=== PATIENT | male | born 1935 | race Caucasian/White ===

== ENCOUNTER → 2016-10-05 | Outpatient (CLI) | payer MEDICARE, OTHER ==
[2016-10-05 08:27] LABS: HEMOGLOBIN 11.3 gm/dl (14.0-17.5); RED BLOOD COUNT 3.49 M/UL (4.20-5.50); WHITE BLOOD COUNT 2.8 K/UL (4.5-11.0)
[2016-10-05 08:46] LABS: BUN/CREATININE RATIO 28 (0-10)
== END ==
LOC: LAB 07:29
PROVIDERS: Emergency Medicine
DX: Z00.01 Encounter for general adult medical examination with abnormal findings (principal); I25.10 Atherosclerotic heart disease of native coronary artery without angina pectoris; E78.2 Mixed hyperlipidemia; G56.00 Carpal tunnel syndrome, unspecified upper limb; G56.03 Carpal tunnel syndrome, bilateral upper limbs; Z12.11 Encounter for screening for malignant neoplasm of colon; Z81.2 Family history of tobacco abuse and dependence; Z12.5 Encounter for screening for malignant neoplasm of prostate; R73.09 Other abnormal glucose; M51.36 Other intervertebral disc degeneration, lumbar region; I65.21 Occlusion and stenosis of right carotid artery; M13.851 Other specified arthritis, right hip
CPT/HCPCS: 36415; 80053; 80061; 80162; 83704; 85027

== ENCOUNTER → 2016-12-29 | Outpatient (CLI) | payer MEDICARE, OTHER ==
[2016-12-29 08:10] LABS: HEMOGLOBIN 11.8 gm/dl (14.0-17.5); RED BLOOD COUNT 3.59 M/UL (4.20-5.50); WHITE BLOOD COUNT 2.7 K/UL (4.5-11.0)
[2016-12-29 08:29] LABS: BUN/CREATININE RATIO 21 (0-10)
== END ==
LOC: LAB 07:19
PROVIDERS: Emergency Medicine
DX: M54.5 Low back pain (principal); I10 Essential (primary) hypertension; I48.2 Chronic atrial fibrillation; G56.03 Carpal tunnel syndrome, bilateral upper limbs; M51.36 Other intervertebral disc degeneration, lumbar region; M41.9 Scoliosis, unspecified
CPT/HCPCS: 36415; 72110; 80048; 85027

== ENCOUNTER → 2020-05-27 | Outpatient (CLI) | payer MEDICARE, OTHER ==
[~2020-05-27] MED LIST: ADULT LOW DOSE81 MG PO; AVODART0.5 MG PO; CARAFATE 1 GM TA1 GM PO; CARDIZEM60 MG PO; CEFDINIR300 MG PO; CLOPIDOGREL75 MG PO; COUMADIN2.5 MG PO; COUMADIN5 MG PO; DIGOXIN125 MCG PO; DILTIAZEM 24HR240 M1 PO; ECOTRIN81 MG PO; ELIQUIS 2.5 MG2.5 MG PO; ELIQUIS 5 MG TAB5 MG PO; FEOSOL325 MG PO; FLAGYL500 MG PO; FLOMAX 0.4 MG0.4 MG PO; FUROSEMIDE40 MG PO; ICAPS TABLET1 EACH PO; LANOXIN125 MCG PO; LASIX20 MG PO; LEVAQUIN500 MG PO; LEVOFLOXACIN500 MG PO; LIORESAL TAB 1010 MG PO; LOPRESSOR 50 MG50 MG PO; MIRALAX17 GM PO; NEURONTIN 100100 MG PO; NORCO 5-325 TA1 EACH PO; NORVASC10 MG PO; PRAVACHOL20 MG PO; PROSCAR5 MG PO; PROTONIX 40 MG40 M1 PO; PROTONIX40 MG PO; STIMULANT LAXA1 EACH PO; TYLENOL W/CODEIN1 E1 PO; ULTRAM50 MG PO; VITAMIN B-121000 MC3 PO; VITAMIN B12-FO1 EACH PO
== END ==
LOC: ECHO 10:34
DX: I35.0 Nonrheumatic aortic (valve) stenosis (principal); I51.7 Cardiomegaly; I34.8 Other nonrheumatic mitral valve disorders; I34.0 Nonrheumatic mitral (valve) insufficiency; I10 Essential (primary) hypertension
CPT/HCPCS: ECHO; 93306

== ENCOUNTER → 2020-09-02 | Outpatient (CLI) | payer MEDICARE, OTHER ==
[2020-09-02 10:21] LABS: BUN/CREATININE RATIO 24 (0-10)
== END ==
LOC: LAB 08:12
PROVIDERS: Emergency Medicine
DX: I10 Essential (primary) hypertension (principal); E78.2 Mixed hyperlipidemia; D50.8 Other iron deficiency anemias; R53.83 Other fatigue
CPT/HCPCS: 36415; 80053; 84443; 84550

== ENCOUNTER 2020-09-15 22:33 | Inpatient (IN) | payer MEDICARE, OTHER ==
[~2020-09-15] VITALS: Ht 177.8 cm; Wt 69.1 kg
[~2020-09-15 22:33] MED LIST changes: -CARAFATE 1 GM TA1 GM PO; -CLOPIDOGREL75 MG PO; -DIGOXIN125 MCG PO; -ELIQUIS 2.5 MG2.5 MG PO; -FUROSEMIDE40 MG PO; -LIORESAL TAB 1010 MG PO; -PROTONIX 40 MG40 M1 PO; -STIMULANT LAXA1 EACH PO
[2020-09-15 23:20] LABS: HEMOGLOBIN 7.9 gm/dl (14.0-17.5); RED BLOOD COUNT 2.22 M/UL (4.20-5.50); WHITE BLOOD COUNT 5.6 K/UL (4.5-11.0)
[2020-09-16] MEDS ORDERED: ELIQUIS 2.5 MG2.5 MG PO (04:07)
[2020-09-16 13:32] LABS: HEMOGLOBIN 10.2 gm/dl (14.0-17.5); RED BLOOD COUNT 3.11 M/UL (4.20-5.50); WHITE BLOOD COUNT 5.3 K/UL (4.5-11.0)
[2020-09-17 05:39] LABS: HEMOGLOBIN 10.4 gm/dl (14.0-17.5); RED BLOOD COUNT 3.14 M/UL (4.20-5.50)
[2020-09-17 05:49] LABS: WHITE BLOOD COUNT 7.7 K/UL (4.5-11.0)
--- NOTE | 2020-09-17 12:28 | NUR ---
REPORT CALLED TO RUKHSANA BAHENA. PATIENT GOING TO PCU RM [id number] FROM PACU. NOTIFIED REECE FROM PACU TO CALL REPORT TO SHRUTI. PT BELONGINGS TAKEN TO PT IN ROM 6106 BY RUKHSANA REMY.
[2020-09-18 04:48] LABS: RED BLOOD COUNT 3.06 M/UL (4.20-5.50); WHITE BLOOD COUNT 6.7 K/UL (4.5-11.0)
[2020-09-18 05:50] LABS: BUN/CREATININE RATIO 24 (0-10)
[2020-09-18] MEDS ORDERED: PROTONIX 40 MG40 M1 PO (11:53)
== END 2020-09-18 13:50 | disposition home or self-care (01) | DRG 377 ==
LOC: ER1 22:33 → CDU 09-16 00:43 → CCU 09-16 00:43 → PROG CARE 09-16 00:43 → CCU 09-16 04:05 → PROG CARE 09-17 12:07
PROVIDERS: Internal Medicine; Internal Medicine Gastroenterology; Physician Assistant; ADMIT Internal Medicine
PROC: 0DB78ZX Excision of Stomach, Pylorus, Via Natural or Artificial Opening Endoscopic, Diagnostic (ICD-10-PCS; principal; 2020-09-17 16:00)
DX: K29.71 Gastritis, unspecified, with bleeding (principal); I21.A1 Myocardial infarction type 2; E87.3 Alkalosis; D62 Acute posthemorrhagic anemia; I48.20 Chronic atrial fibrillation, unspecified; N17.9 Acute kidney failure, unspecified; K25.9 Gastric ulcer, unspecified as acute or chronic, without hemorrhage or perforation; E78.5 Hyperlipidemia, unspecified; I49.5 Sick sinus syndrome; I25.10 Atherosclerotic heart disease of native coronary artery without angina pectoris; I10 Essential (primary) hypertension; N40.0 Benign prostatic hyperplasia without lower urinary tract symptoms; R73.03 Prediabetes; D69.6 Thrombocytopenia, unspecified; D46.9 Myelodysplastic syndrome, unspecified; Z96.641 Presence of right artificial hip joint; R53.1 Weakness; D50.9 Iron deficiency anemia, unspecified; I35.0 Nonrheumatic aortic (valve) stenosis; I07.1 Rheumatic tricuspid insufficiency; R33.9 Retention of urine, unspecified; Z79.01 Long term (current) use of anticoagulants; Z95.0 Presence of cardiac pacemaker; Z86.73 Personal history of transient ischemic attack (TIA), and cerebral infarction without residual deficits; Z95.1 Presence of aortocoronary bypass graft; Z82.49 Family history of ischemic heart disease and other diseases of the circulatory system
CPT/HCPCS: 0240U; 36415; 36430; 36600; 71045; 80048; 80053; 82272; 82550; 82553; 82803; 83874; 83880; 84484; 85025; 85610; 85730; 86850; 86900; 86901; 86920; 88342; 93005; 96374; 99285; C9113; J1940; J7030; J7040; J7050; P9016

== ENCOUNTER 2020-09-22 14:14 | Inpatient (IN) | payer MEDICARE, OTHER ==
[~2020-09-22] VITALS: Ht 180.3 cm; Wt 70.1 kg
[~2020-09-22 14:14] MED LIST changes: +ELIQUIS 2.5 MG2.5 MG PO; +PROTONIX 40 MG40 M1 PO
[2020-09-22 15:43] LABS: HEMOGLOBIN 8.5 gm/dl (14.0-17.5); RED BLOOD COUNT 2.6 M/UL (4.20-5.50); WHITE BLOOD COUNT 3.7 K/UL (4.5-11.0)
[2020-09-23] MEDS ORDERED: LIORESAL TAB 1010 MG PO (03:04)
[2020-09-23 03:20] LABS: HEMOGLOBIN 8.1 gm/dl (14.0-17.5); RED BLOOD COUNT 2.49 M/UL (4.20-5.50); WHITE BLOOD COUNT 4.5 K/UL (4.5-11.0)
--- NOTE | 2020-09-23 04:38 | NUR ---
PATIENT ARRIVED ON FLOOR AT 2211 AT 2215 LAB REPORTED CRITICAL TROPONIN I OF 0.81 LAST TROPONIN 0.90. AT 0407 LAB CALLED CRITICAL TROPONIN I OF 0.67. TROPONIN CONTINUES TO TREND DOWN.
--- NOTE | 2020-09-23 08:20 | NUR ---
RN NOTIFIED DR. ALVAREZ OF ELEVATED TROPONIN LEVEL AND INFORMED HIM THAT CARDIOLOGY CONSULT WAS ORDERED. NO NEW ORDERS NOTED.
[2020-09-23 18:12] LABS: HEMOGLOBIN 7.7 gm/dl (14.0-17.5)
[2020-09-23 22:09] LABS: ACINETOBACTER BAUMANNII Not Detected (Negative); CANDIDA ALBICANS Not Detected (Negative); CANDIDA KRUSEI Not Detected (Negative); CANDIDA TROPICALIS Not Detected (Negative); ENTEROCOCCUS Not Detected (Negative); ESCHERICHIA COLI Not Detected (Negative); HAEMOPHILUS INFLUENZAE Not Detected (Negative); KLEBSIELLA OXYTOCA Not Detected (Negative); KLEBSIELLA PNEUMONIAE Not Detected (Negative); KPC-CARBAPENEM-RESISTANCE GENE Not Detected (Negative); PROTEUS Not Detected (Negative); PSEUDOMONAS AERUGINOSA Not Detected (Negative); SERRATIA MARCESANS Not Detected (Negative); STAPHYLOCOCCUS AUREUS Not Detected (Negative); STREP AGALACTIAE (GROUP B) Not Detected (Negative); STREP PYOGENES (GROUP A) Not Detected (Negative); STREPTOCOCCUS Not Detected (Negative); vanA/B (VANCOMYCIN RESIST GENE Not Detected (Negative)
[2020-09-23 23:43] LABS: STAPHYLOCOCCUS DETECTED (Negative); mecA (METHICILLIN RESIST GENE DETECTED (Negative)
[2020-09-24 03:53] LABS: RED BLOOD COUNT 2.45 M/UL (4.20-5.50); WHITE BLOOD COUNT 3.5 K/UL (4.5-11.0)
[2020-09-24 19:07] LABS: BORDETELLA PARAPERTUSSIS Not Detected (Not Detectd); BORDETELLA PERTUSSIS Not Detected (Not Detectd); CHLAMYDIA PNEUMONIAE Not Detected (Not Detectd); CORONAVIRUS HKU1 Not Detected (Not Detectd); CORONAVIRUS NL63 Not Detected (Not Detectd); CORONAVIRUS OC43 Not Detected (Not Detectd); CORONOAVIRUS 229E Not Detected (Not Detectd); HUMAN METAPNEUMOVIRUS Not Detected (Not Detectd); HUMAN RHINOVIRUS/ENTEROVIRUS Not Detected (Not Detectd); INFLUENZA A Not Detected (Not Detectd); INFLUENZA B Not Detected (Not Detectd); MYCOPLASMA PNEUMONIAE Not Detected (Not Detectd); PARAINFLUENZA VIRUS 1 Not Detected (Not Detectd); PARAINFLUENZA VIRUS 2 Not Detected (Not Detectd); PARAINFLUENZA VIRUS 3 Not Detected (Not Detectd); PARAINFLUENZA VIRUS 4 Not Detected (Not Detectd); RESPIRATORY SYNCYTIAL VIRUS Not Detected (Not Detectd)
[2020-09-24 20:15] LABS: SARS-CoV-2 NOT DETECTED (Not Detectd)
[2020-09-25 05:23] LABS: HEMOGLOBIN 7.8 gm/dl (14.0-17.5); RED BLOOD COUNT 2.39 M/UL (4.20-5.50); WHITE BLOOD COUNT 3.6 K/UL (4.5-11.0)
[2020-09-26 04:00] LABS: RED BLOOD COUNT 2.46 M/UL (4.20-5.50); WHITE BLOOD COUNT 4.4 K/UL (4.5-11.0)
--- NOTE | 2020-09-26 12:10 | NUR ---
PATIENTS ROOM AIR 02 SAT 84%
[2020-09-27 03:40] LABS: HEMOGLOBIN 8.3 gm/dl (14.0-17.5); RED BLOOD COUNT 2.55 M/UL (4.20-5.50); WHITE BLOOD COUNT 4.8 K/UL (4.5-11.0)
--- NOTE | 2020-09-27 17:13 | NUR ---
ANTI EMBOLSM STOCKINGS APPLIED.
[2020-09-28 06:10] LABS: HEMOGLOBIN 9.9 gm/dl (14.0-17.5); WHITE BLOOD COUNT 5.4 K/UL (4.5-11.0)
[2020-09-28 06:12] LABS: RED BLOOD COUNT 3.16 M/UL (4.20-5.50)
--- NOTE | 2020-09-28 14:06 | NUR ---
PATIENT HAVING MOMENT OF CONFUSION. PATIENT ASKED ME TO "HOLD THIS PAINT CAN IN MY HAND FOR ME" PATIENT HAD NOTHING IN HAND. ANSWERED ALL QUESTIONS REGARDING ORIENTATION APPROPRIATELY. HE KNEW WHERE HE WAS, WHO HE WAS, THE YEAR AND THE PRESIDENT.
[2020-09-29 06:10] LABS: HEMOGLOBIN 9.8 gm/dl (14.0-17.5); RED BLOOD COUNT 3.13 M/UL (4.20-5.50); WHITE BLOOD COUNT 4.4 K/UL (4.5-11.0)
[2020-09-29 07:15] LABS: BUN/CREATININE RATIO 15 (0-10)
[2020-09-29] MEDS ORDERED: CLOPIDOGREL75 MG PO (11:15)
[2020-09-29] MEDS ORDERED: FUROSEMIDE40 MG PO (11:15)
[2020-09-29] MEDS ORDERED: DIGOXIN125 MCG PO (11:15)
[2020-09-29] MEDS ORDERED: STIMULANT LAXA1 EACH PO (11:15)
[2020-09-29] MEDS ORDERED: CARAFATE 1 GM TA1 GM PO (11:15)
--- NOTE | 2020-09-29 14:44 | NUR ---
ROOM AIR SAT 87%
== END 2020-09-29 17:49 | disposition home health service (06) | DRG 291 ==
LOC: ER1 14:14 → MED SURG 4 19:12 → CDU 19:12 → MED SURG 4 22:11
PROVIDERS: Emergency Medicine; Family Medicine; Internal Medicine Infectious Disease; Physician Assistant; ADMIT Internal Medicine
PROC: 30233N1 Transfusion of Nonautologous Red Blood Cells into Peripheral Vein, Percutaneous Approach (ICD-10-PCS; principal; 2020-09-27)
DX: I13.0 Hypertensive heart and chronic kidney disease with heart failure and stage 1 through stage 4 chronic kidney disease, or unspecified chronic kidney disease (principal); I50.33 Acute on chronic diastolic (congestive) heart failure; J96.01 Acute respiratory failure with hypoxia; K25.0 Acute gastric ulcer with hemorrhage; D62 Acute posthemorrhagic anemia; I48.20 Chronic atrial fibrillation, unspecified; D61.818 Other pancytopenia; D68.9 Coagulation defect, unspecified; Z20.822 Contact with and (suspected) exposure to COVID-19; I34.0 Nonrheumatic mitral (valve) insufficiency; E78.5 Hyperlipidemia, unspecified; N18.30 Chronic kidney disease, stage 3 unspecified; J43.9 Emphysema, unspecified; I49.5 Sick sinus syndrome; D50.9 Iron deficiency anemia, unspecified; I35.0 Nonrheumatic aortic (valve) stenosis; D69.6 Thrombocytopenia, unspecified; Z96.641 Presence of right artificial hip joint; R53.81 Other malaise; K59.00 Constipation, unspecified; I25.2 Old myocardial infarction; Z79.01 Long term (current) use of anticoagulants; Z95.1 Presence of aortocoronary bypass graft; Z95.0 Presence of cardiac pacemaker; Z86.73 Personal history of transient ischemic attack (TIA), and cerebral infarction without residual deficits; Z98.62 Peripheral vascular angioplasty status; Z82.49 Family history of ischemic heart disease and other diseases of the circulatory system
CPT/HCPCS: 0240U; 36415; 36430; 36600; 71045; 71046; 71250; 80048; 80053; 80162; 80202; 82272; 82550; 82553; 82607; 82728; 82803; 82962; 83540; 83550; 83605; 83735; 83874; 83880; 84439; 84443; 84484; 85014; 85018; 85025; 85027; 86850; 86900; 86901; 86920; 87040; 87070; 87077; 87150; 87186; 87205; 87633; 93005; 94640; 94664; 94760; 96372; 96374; 96375; 96376; 97116-GP-CQ; 99285; G0378; J0456; J0696; J1335; J1644; J1756; J1940; J2405; J3370; J7030; J7070; P9016

== ENCOUNTER → 2020-10-24 | Outpatient (CLI) | payer MEDICARE, OTHER ==
[~2020-10-24] MED LIST changes: +CARAFATE 1 GM TA1 GM PO; +CLOPIDOGREL75 MG PO; +DIGOXIN125 MCG PO; +FUROSEMIDE40 MG PO; +LIORESAL TAB 1010 MG PO; +STIMULANT LAXA1 EACH PO
[2020-10-24 12:10] LABS: HEMOGLOBIN 10.1 gm/dl (14.0-17.5); RED BLOOD COUNT 3.18 M/UL (4.20-5.50); WHITE BLOOD COUNT 2.5 K/UL (4.5-11.0)
[2020-10-24 12:29] LABS: BUN/CREATININE RATIO 16 (0-10)
== END ==
LOC: LAB 11:33
PROVIDERS: Internal Medicine Interventional Cardiology
DX: I35.0 Nonrheumatic aortic (valve) stenosis (principal); I48.91 Unspecified atrial fibrillation; I10 Essential (primary) hypertension; I25.10 Atherosclerotic heart disease of native coronary artery without angina pectoris; E78.5 Hyperlipidemia, unspecified; B06.0 Rubella with neurological complications
CPT/HCPCS: 36415; 80048; 85025; 85610; 85730

== ENCOUNTER → 2020-11-04 | Outpatient (CLI) | payer MEDICARE, OTHER | LOC: CATH 11:12 | DX: I25.10 Atherosclerotic heart disease of native coronary artery without angina pectoris (principal); I27.20 Pulmonary hypertension, unspecified; I35.0 Nonrheumatic aortic (valve) stenosis; I10 Essential (primary) hypertension; I48.91 Unspecified atrial fibrillation; E78.5 Hyperlipidemia, unspecified; Z95.0 Presence of cardiac pacemaker; Z20.822 Contact with and (suspected) exposure to COVID-19; Z88.8 Allergy status to other drugs, medicaments and biological substances | CPT/HCPCS: 82803; 99152; C1751; C1769; J1644; J2250; J7030; Q9965 ==

== ENCOUNTER 2020-11-17 15:13 | Observation (INO) | payer MEDICARE, OTHER ==
[~2020-11-17] VITALS: Ht 177.8 cm; Wt 67.1 kg
[2020-11-17 16:16] LABS: HEMOGLOBIN 7.2 gm/dl (14.0-17.5); RED BLOOD COUNT 2.21 M/UL (4.20-5.50); WHITE BLOOD COUNT 3.5 K/UL (4.5-11.0)
[2020-11-17 19:25] LABS: HEMOGLOBIN 6.7 gm/dl (14.0-17.5)
--- NOTE | 2020-11-18 06:05 | NUR ---
APPROX. 0345: AFTER SECOND UNIT OF BLOOD WAS DONE INFUSING, PT BECAME NAUSEOUS AND STARTED VOMITING. BLOOD TRANSFUSION WAS IMMEDIATELY STOPPED. SECOND VERIFICATION WAS COMPLETED AGAIN. APPROX. 0400: NOTIFIED LAB OF POSSIBLE TRANSFUSION REACTION. APPROX. 0409: NOTIFIED OF SUSPECTED REACTION. SEE PROVIDER NOTIFICATIONS FOR DETAILS. APPROX. 0457: ALL OF BLOOD TUBING AND BAGS WERE SENT TO LAB VIA BIOHAZARD BAG. TRANSFUSION REACTION FORM WAS SENT TO LAB. URINE SAMPLE WAS SENT TO LAB.
[2020-11-18 06:39] LABS: RED BLOOD COUNT 2.8 M/UL (4.20-5.50); WHITE BLOOD COUNT 4.4 K/UL (4.5-11.0)
[2020-11-19 02:15] LABS: HEMOGLOBIN 8.9 gm/dl (14.0-17.5); RED BLOOD COUNT 2.75 M/UL (4.20-5.50); WHITE BLOOD COUNT 4.9 K/UL (4.5-11.0)
--- NOTE | 2020-11-19 12:58 | NUR ---
1245: REPORT CALLED TO RUKHSANA BUSH AT [place], [place]. PATIENT WILL BE TRANSPORTED VIA AMBULANCE SERVICE BLS CREW. PATIENT WILL BE TRANSPORTED WITH OXYGEN @ 2 LPM N/C AND # 20 GUAGE HEPLOCKED IV IN THE RIGHT WRIST. CONSENT FOR TRANSFER TO [facility] NOTED. AWAITING ARRIVAL OF EMS FOR TRANSPORT.
== END 2020-11-19 14:57 | disposition other institution (70) ==
LOC: ER1 15:13 → MED SURG 4 18:43 → CDU 18:43 → MED SURG 4 22:25
PROVIDERS: Emergency Medicine; Internal Medicine; ADMIT Internal Medicine
DX: D61.818 Other pancytopenia (principal); D62 Acute posthemorrhagic anemia; D46.9 Myelodysplastic syndrome, unspecified; I25.10 Atherosclerotic heart disease of native coronary artery without angina pectoris; Z79.01 Long term (current) use of anticoagulants; Z95.1 Presence of aortocoronary bypass graft; Z95.0 Presence of cardiac pacemaker; E78.5 Hyperlipidemia, unspecified; I12.9 Hypertensive chronic kidney disease with stage 1 through stage 4 chronic kidney disease, or unspecified chronic kidney disease; N18.9 Chronic kidney disease, unspecified; N40.0 Benign prostatic hyperplasia without lower urinary tract symptoms; K92.2 Gastrointestinal hemorrhage, unspecified; R19.5 Other fecal abnormalities; I48.20 Chronic atrial fibrillation, unspecified; I35.0 Nonrheumatic aortic (valve) stenosis; Z96.641 Presence of right artificial hip joint; I25.2 Old myocardial infarction; Z20.822 Contact with and (suspected) exposure to COVID-19; J90 Pleural effusion, not elsewhere classified; R94.31 Abnormal electrocardiogram [ECG] [EKG]
CPT/HCPCS: 36415; 36430; 71045; 80048; 80053; 81001; 82272; 82550; 82553; 83690; 83735; 83874; 83880; 84100; 84484; 85014; 85018; 85025; 85610; 85730; 86850; 86900; 86901; 86920; 86922; 96374; 96375; 99285; C9113; G0378; J1940; J2405; J7030; J7050; P9016; U0002

== ENCOUNTER → 2021-01-16 | Outpatient (CLI) | payer MEDICARE, OTHER ==
[~2021-01-16] MED LIST changes: +CLINDAMYCIN HC300 MG PO; +DIGITEK125 MCG PO; +FINASTERIDE5 MG PO; +HYDROCODON-ACE1 EAC4 PO; +LASIX 40 MG TAB40 MG PO; +METOPROLOL SUCC50 MG PO; +METOPROLOL TART50 MG PO; +PRAVASTATIN SOD20 MG PO
[2021-01-16 13:35] LABS: HEMOGLOBIN 8.9 gm/dl (14.0-17.5); RED BLOOD COUNT 2.83 M/UL (4.20-5.50); WHITE BLOOD COUNT 2.6 K/UL (4.5-11.0)
[2021-01-16 14:05] LABS: BUN/CREATININE RATIO 19 (0-10)
== END ==
LOC: LAB 11:41
PROVIDERS: Internal Medicine Cardiovascular Disease
DX: I50.22 Chronic systolic (congestive) heart failure (principal); I42.9 Cardiomyopathy, unspecified; I48.91 Unspecified atrial fibrillation
CPT/HCPCS: 36415; 71046; 80048; 85025

== ENCOUNTER 2021-01-20 06:52 | Outpatient (CLI) | payer MEDICARE, OTHER ==
[~2021-01-20] VITALS: Ht 177.8 cm; Wt 65.8 kg
[~2021-01-20 06:52] MED LIST changes: -CLINDAMYCIN HC300 MG PO; -DIGITEK125 MCG PO; -FINASTERIDE5 MG PO; -HYDROCODON-ACE1 EAC4 PO; -LASIX 40 MG TAB40 MG PO; -METOPROLOL SUCC50 MG PO; -PRAVASTATIN SOD20 MG PO
[2021-01-20] MEDS ORDERED: DIGITEK125 MCG PO (07:49)
[2021-01-20] MEDS ORDERED: DILTIAZEM 24HR240 M1 PO (07:50)
[2021-01-20] MEDS ORDERED: FINASTERIDE5 MG PO (07:50)
[2021-01-20] MEDS ORDERED: FLOMAX 0.4 MG0.4 MG PO (07:55)
[2021-01-20] MEDS ORDERED: LASIX 40 MG TAB40 MG PO (07:56)
[2021-01-20] MEDS ORDERED: METOPROLOL SUCC50 MG PO (07:57)
[2021-01-20] MEDS ORDERED: PROTONIX40 MG PO (07:57)
[2021-01-20] MEDS ORDERED: STIMULANT LAXA1 EACH PO (07:58)
[2021-01-20] MEDS ORDERED: PRAVASTATIN SOD20 MG PO (07:58)
[2021-01-20] MEDS ORDERED: CLINDAMYCIN HC300 MG PO (11:17)
[2021-01-20] MEDS ORDERED: HYDROCODON-ACE1 EAC4 PO (11:17)
[2021-01-20] MEDS ORDERED: LEVOFLOXACIN500 MG PO (11:17)
== END 2021-01-21 13:52 | disposition home or self-care (01) ==
LOC: CATH 06:52 → MED SURG 4 12:08 → CATH 01-21 13:52
DX: I42.0 Dilated cardiomyopathy (principal); I50.22 Chronic systolic (congestive) heart failure; I25.10 Atherosclerotic heart disease of native coronary artery without angina pectoris; I10 Essential (primary) hypertension; I48.21 Permanent atrial fibrillation; Z95.0 Presence of cardiac pacemaker; I35.0 Nonrheumatic aortic (valve) stenosis; Z87.891 Personal history of nicotine dependence; Z95.1 Presence of aortocoronary bypass graft; D64.9 Anemia, unspecified; E78.5 Hyperlipidemia, unspecified; I27.20 Pulmonary hypertension, unspecified; Z88.8 Allergy status to other drugs, medicaments and biological substances; Z96.649 Presence of unspecified artificial hip joint; Z95.2 Presence of prosthetic heart valve; R91.8 Other nonspecific abnormal finding of lung field
CPT/HCPCS: 71045; 93005; 99152; 99153; C1769; C1900; C2621; J1644; J2250; J3010; J3370; J7040; J7070; Q9965

== ENCOUNTER → 2021-02-04 | Outpatient (CLI) | payer MEDICARE, OTHER ==
[~2021-02-04] MED LIST changes: +CLINDAMYCIN HC300 MG PO; +DIGITEK125 MCG PO; +FINASTERIDE5 MG PO; +HYDROCODON-ACE1 EAC4 PO; +LASIX 40 MG TAB40 MG PO; +METOPROLOL SUCC50 MG PO; +PRAVASTATIN SOD20 MG PO
== END ==
LOC: RAD 10:39
DX: D50.9 Iron deficiency anemia, unspecified (principal)
CPT/HCPCS: 74018

== ENCOUNTER → 2021-02-13 | Outpatient (CLI) | payer MEDICARE, OTHER ==
[2021-02-13 09:57] LABS: HEMOGLOBIN 10.5 gm/dl (14.0-17.5); RED BLOOD COUNT 3.27 M/UL (4.20-5.50)
[2021-02-13 10:25] LABS: WHITE BLOOD COUNT 2.2 K/UL (4.5-11.0)
[2021-02-13 10:33] LABS: BUN/CREATININE RATIO 17 (0-10)
[2021-02-15 15:10] LABS: CHOLESTEROL, TOTAL 119 mg/dL (100-199); HDL SIZE 9.8 nm (>=9.2); HDL-C 49 mg/dL (>39); HDL-P (TOTAL) 26.8 umol/L (>=30.5); LARGE HDL-P 7.4 umol/L (>=4.8); LARGE VLDL-P 1.1 nmol/L (<=2.7); LDL-C 58 mg/dL (0-99); LDL-P 518 nmol/L (<1000); LP-IR SCORE <25 (<=45); SMALL LDL-P <90 nmol/L (<=527); TRIGLYCERIDES 54 mg/dL (0-149); VLDL SIZE 43.7 nm (<=46.6)
== END ==
LOC: LAB 09:30
PROVIDERS: Emergency Medicine
DX: I25.10 Atherosclerotic heart disease of native coronary artery without angina pectoris (principal); D50.0 Iron deficiency anemia secondary to blood loss (chronic); E78.2 Mixed hyperlipidemia; I48.21 Permanent atrial fibrillation
CPT/HCPCS: 36415; 80053; 80061; 80162; 83704; 84443; 84550; 85025

== ENCOUNTER → 2021-08-18 | Outpatient (CLI) | payer MEDICARE, OTHER | LOC: KOH-I 08-14 08:00 | DX: I65.23 Occlusion and stenosis of bilateral carotid arteries (principal); I25.10 Atherosclerotic heart disease of native coronary artery without angina pectoris; M51.36 Other intervertebral disc degeneration, lumbar region | CPT/HCPCS: 72131; 93880 ==

== ENCOUNTER → 2021-09-07 | Outpatient (CLI) | payer MEDICARE, OTHER ==
[2021-09-07 14:32] LABS: HEMOGLOBIN 11.6 gm/dl (14.0-17.5); RED BLOOD COUNT 3.59 M/UL (4.20-5.50); WHITE BLOOD COUNT 3.3 K/UL (4.5-11.0)
== END ==
LOC: LAB 08:44
PROVIDERS: Emergency Medicine
DX: I25.10 Atherosclerotic heart disease of native coronary artery without angina pectoris (principal); I10 Essential (primary) hypertension; E78.2 Mixed hyperlipidemia; I48.21 Permanent atrial fibrillation
CPT/HCPCS: 36415; 80053; 85025

== ENCOUNTER → 2021-10-05 | Outpatient (CLI) | payer MEDICARE, OTHER | LOC: CT 09:00 | DX: I25.10 Atherosclerotic heart disease of native coronary artery without angina pectoris (principal); I65.22 Occlusion and stenosis of left carotid artery | CPT/HCPCS: 70498; Q9967 ==

== ENCOUNTER → 2021-10-28 | Outpatient (CLI) | payer MEDICARE, OTHER | LOC: MO 12:52 | PROVIDERS: Internal Medicine Hematology & Oncology | DX: C94.6 Myelodysplastic disease, not elsewhere classified (principal); D50.9 Iron deficiency anemia, unspecified; Z87.891 Personal history of nicotine dependence; Z79.899 Other long term (current) drug therapy; Z79.891 Long term (current) use of opiate analgesic | CPT/HCPCS: 80053; 82728; 83540; 83550; G0463 ==